=== PATIENT | male | born 1985 | race Hispanic/Latino ===

== ENCOUNTER 2017-08-28 19:37 | Emergency (ER) | payer SELFPAY | END 2017-08-28 21:23 | disposition home or self-care (01) | LOC: ERS 19:37 | DX: K12.0 Recurrent oral aphthae (principal); E78.5 Hyperlipidemia, unspecified; F17.210 Nicotine dependence, cigarettes, uncomplicated; Z71.6 Tobacco abuse counseling | CPT/HCPCS: 99406 ==